=== PATIENT | male | born 1950 | race Caucasian/White ===

== ENCOUNTER 2017-10-07 15:37 | Emergency (ER) | payer BC ==
[~2017-10-07] VITALS: Ht 185.4 cm; Wt 61.1 kg
[~2017-10-07 15:37] MED LIST: ASPEC81 PO; ATOR80TA PO; BNC40 PO; BUPR150T7 PO; CLOP1TAB15 PO; GLCSR750 PO; HYDR25TA4 PO; INSDGI SC
[2017-10-07 15:41] VITALS: TEMP 36.3; Ht 185.4 cm; Wt 61.1 kg
[2017-10-07] MEDS ORDERED: ASPIRIN 81 MG CHEW PO STA (16:06)
[2017-10-07] MEDS ORDERED: NVLG SC (16:10)
[2017-10-07] MEDS ORDERED: GLIM2TAB2 PO (16:10)
[2017-10-07] MEDS ORDERED: DILT-119 PO (16:10)
[2017-10-07] MEDS ORDERED: DOXA8TAB6 PO (16:10)
[2017-10-07] MEDS ORDERED: NITROGLYCERIN 2% OINTMENT 30GM TUBE EXT ONE (16:15)
[2017-10-07 16:19] LABS: HEMATOCRIT 37.7 % (42-52); HEMOGLOBIN 13.5 g/dL (14.0-18.0); MEAN CELL VOLUME 88.7 fL (80-100); MEAN CORPUSCULAR HEMOGLOBIN 31.8 pg (25-34); MEAN CORPUSCULAR HGB CONC 35.8 g/dl (32-36); MEAN PLATELET VOLUME 11.1 fL (7.4-10.4); PLATELET COUNT 198 K/uL (130-400); RED CELL DISTRIBUTION WIDTH CV 13.1 % (11.5-14.5); RED CELL DISTRIBUTION WIDTH SD 42.4 fL (36.4-46.3); WHITE BLOOD COUNT 5.13 K/uL (4.8-10.8)
[2017-10-07] MEDS ORDERED: BNC40 PO (16:19)
[2017-10-07] MEDS ORDERED: ASPI81TA21 PO (16:19)
[2017-10-07] MEDS ORDERED: INSDGI SC ×2 (16:19)
[2017-10-07] MEDS ORDERED: METF750T PO (16:19)
--- NOTE | 2017-10-07 16:22 | EMERGENCY ROOM VISIT NOTE ---
History Report prepared by Gabino: Poonam Maldonado Under the Supervision of: Dr. Wolf Martinez M.D. First contact with patient: 15:54 Chief Complaint: CHEST PAIN Stated Complaint: CHEST PAIN Nursing Triage Summary: pt to the ED with 3 hrs chest pain and feels like previous time he got a stent placed History of Present Illness The patient is a 67 year old male who presents to the Emergency Room with complaints of sudden chest pain beginning 3 hours prior to arrival. The patient rates his pain at a 2/10. The patient states that he usually walks two miles per day, and that his chest pain began 30 minutes after his walk today. The patient reports that he then checked his blood pressure and that it was slightly elevated. He reports that he had the pain for about 3 hours, and that it seems to be gone now that he is here. He states that he took baby aspirin for his pain but that it did not help. He reports that nothing makes his pain better or worse. The patient states that he had similar symptoms 5-10 years ago and that he had a stent placed. He denies a personal history of blood clots and strokes, but states that his father had a DVT. He reports that he is diabetic and that he has hypertension. He also reports that he had a stress test done 3- 4 months ago and that he passed. The patient denies having fevers, chills, headache, nausea, shortness of breath, numbness, and tingling. No radiation of his chest pain. Source of History: patient Onset: 3 hours prior to arrival Position: chest Symptom Intensity: rated at a 2/10 Timing: other (sudden) Associated Symptoms: No fevers, No chills, No headache, No SOB, No nausea, No numbness Review of Systems See HPI for pertinent positives & negatives. A total of 10 systems reviewed and were otherwise negative. Past Medical & Surgical Medical Problems: (1) Diabetes (2) HTN (hypertension) Surgical Problems: (1) Hx of heart artery stent Family History DVT Social History Smoking Status: Former Smoker Alcohol Use: occasionally Drug Use: none Marital Status: Occupation Status: employed Current/Historical Medications Scheduled Aspirin Enteric Coated (Ecotrin Or Generic), 81 MG PO QAM Atorvastatin (Lipitor), 80 MG PO QPM Bupropion Hcl (Wellbutrin Sr), 300 MG PO QAM Clopidogrel (Plavix), 75 MG PO QAM Diltiazem Hcl Ext Rel (Tiazac), 360 MG PO QAM Doxazosin Mesylate (Doxazosin), 8 MG PO QAM Glimepiride (Glimepiride), 2 MG PO QAM Hydrochlorothiazide (Hctz), 25 MG PO QAM Insulin Glargine (Lantus), 22 UNITS SC QAM Insulin Glargine (Lantus), 18 UNITS SC QPM Metformin Hcl (Glucophage Er), 750 MG PO QAM Olmesartan Medoxomil (Benicar), 40 MG PO QAM Scheduled PRN Insulin Aspart (Novolog), Unknown Dose SC DIRECTED PRN for HEAVY MEALS Allergies Coded Allergies: Penicillins (Verified Allergy, Severe, HIVES, 10/07/17) Physical Exam Vital Signs Date Time Temp Pulse Resp B/P (MAP) Pulse Ox O2 Delivery O2 Flow Rate FiO2 10/07/17 18:59 82 20 146/78 98 10/07/17 18:17 68 14 96 Room Air 10/07/17 16:20 83 10/07/17 16:16 80 18 165/94 97 10/07/17 15:41 36.3 86 18 168/83 98 Room Air Physical Exam GENERAL: Patient is in no acute distress. HEENT: No acute trauma, normocephalic atraumatic, mucous membranes moist, no nasal congestion, no scleral icterus. NECK: No stridor, no adenopathy, no meningismus, trachea is midline. LUNGS: Clear to auscultation bilaterally, no wheeze, no rhonchi, breath sounds equal. HEART: Without murmurs gallops or rubs, regular rate and rhythm. ABDOMEN: Soft, nontender, bowel sounds positive, no hernias, no peritonitis. EXTREMITIES: No cyanosis or edema, full range of motion of all the joints without pain or difficulty, no signs for acute trauma. NEUROLOGIC: Oriented x 3, no acute motor or sensory deficits, no focal weakness. SKIN: No rash, no jaundice, no diaphoresis. CHEST: Nontender chest wall. Medical Decision & Procedures ER Provider Diagnostic Interpretation: Radiology results as stated below per my review and radiologist interpretation: CHEST ONE VIEW PORTABLE CLINICAL HISTORY: Atypical chest pain COMPARISON STUDY: September 2015 FINDINGS: The heart is borderline enlarged. There is no failure. There is no focal pulmonary consolidation. There are no pleural effusions.[ IMPRESSION: No active disease in the chest. Electronically signed by: Johnnie Dave M.D. 10/07/2017 4:23 PM Dictated Date/Time: 10/07/2017 4:23 PM Laboratory Results 10/07/17 15:50 10/07/17 15:50 Test 10/07/17 15:50 10/07/17 16:39 10/07/17 18:12 Red Blood Count 4.25 M/uL (4.7-6.1) Mean Corpuscular Volume 88.7 fL (80-100) Mean Corpuscular Hemoglobin 31.8 pg (25-34) Mean Corpuscular Hemoglobin Concent 35.8 g/dl (32-36) RDW Standard Deviation 42.4 fL (36.4-46.3) RDW Coefficient of Variation 13.1 % (11.5-14.5) Mean Platelet Volume 11.1 fL (7.4-10.4) Anion Gap 8.0 mmol/L (3-11) Est Creatinine Clear Calc Drug Dose 46.7 ml/min Estimated GFR () 65.1 Estimated GFR (Non- 56.2 BUN/Creatinine Ratio 13.9 (10-20) Calcium Level 8.6 mg/dl (8.5-10.1) Total Bilirubin 0.3 mg/dl (0.2-1) Aspartate Amino Transf (AST/SGOT) 21 U/L (15-37) Alanine Aminotransferase (ALT/SGPT) 34 U/L (12-78) Alkaline Phosphatase 93 U/L (45-117) Total Protein 6.6 gm/dl (6.4-8.2) Albumin 3.3 gm/dl (3.4-5.0) Globulin 3.3 gm/dl (2.5-4.0) Albumin/Globulin Ratio 1.0 (0.9-2) Lipase 160 U/L (73-393) Prothrombin Time 10.9 SECONDS (9.0-12.0) Prothromb Time International Ratio 1.0 (0.9-1.1) Activated Partial Thromboplast Time 24.1 SECONDS (21.0-31.0) Partial Thromboplastin Ratio 0.9 Troponin I < 0.015 ng/ml (0-0.045) Laboratory results reviewed by me. Medications Administered Medications (Trade) Dose Ordered Sig/Judson Route Start Time Stop Time Status Last Admin Dose Admin Nitroglycerin (Nitroglycerin 2% Oint) 1 inch NOW ONCE EXT 10/07/17 16:15 10/07/17 16:16 DC 10/07/17 16:22 1 INCH Aspirin (Aspirin Chew) 324 mg NOW STAT PO 10/07/17 16:06 10/07/17 16:09 DC 10/07/17 16:16 324 MG ECG Per My Interpretation Indication: chest pain Rate (beats per minute): 86 Rhythm: sinus rhythm Findings: 1st degree AV block, RBBB (incomplete ), no acute ischemic change, no ectopy Change: the incomplete right bundle branch block is new compared to previous ECG ED Course 1606: Ordered Aspirin 324 mg PO. 1609: The patient was evaluated in room B12B. A complete history and physical exam was performed. 1615: Ordered Nitroglycerin 1 inch EXT. 1711: Discussed the patient's case with Dr. Amador. Dr. Amador feels that if the patient's two troponins are negative then he can go home. 1850: The patient's second troponin was negative. 185: Reevaluated the patient. Discussed results and discharge instructions: He verbalized understanding and agreement. The patient is ready for discharge. Medical Decision The patient is a 67 year old male who presents to the ED with complaints of chest pain. Differential diagnoses considered include angina, myocardial infarction, influx, musculoskeletal pain, gastritis, aortic dissection, pulmonary embolism, and pneumonia. There is no leukocytosis or concerning anemia. No significant electrolyte abnormality, kidney failure or hepatitis. There is no coagulopathy. Chest film does not show pneumonia, pneumothorax or mediastinal widening. EKG shows a sinus rhythm with a first-degree AV block and an incomplete right bundle branch block, no acute ischemia. Cardiac enzyme testing 2 is not consistent with acute cardiac injury. The patient presents with chest pressure which was reminiscent of discomfort he had that eventually led to cardiac stenting. He did receive oral aspirin. He was given nitroglycerin paste however, his pain was pretty much gone before the nitroglycerin was applied. I discussed the case with cardiology. The patient was felt stable for discharge with outpatient follow-up. He did have a stress test 3 or 4 months ago did well, this pain was not exertional and actually came on sometime after his 2 mile walk, not during his exercise. Patient was encouraged to return for any exertional or worsening symptoms. He will continue his care as before. Cardiac follow-up this week was suggested. Medication Reconcilliation Current Medication List: was personally reviewed by me Blood Pressure Screening Patient's blood pressure: Elevated blood pressure Blood pressure disposition: Referred to PCP Consults Time Called: 1630 Consulting Physician: Dr. Amador- [facility] Returned Call: [phone] Discussed the patient's case. Dr. Amador feels that if the patient's two troponins are negative then he can go home. Impression Primary Impression: Precordial chest pain Scribe Attestation The scribe's documentation has been prepared under my direction and personally reviewed by me in its entirety. I confirm that the note above accurately reflects all work, treatment, procedures, and medical decision making performed by me. Departure Information Dispostion Home / Self-Care Referrals No Doctor, Assigned (PCP) Leesa Bah D.O. Forms Call Back Authorization, HOME CARE DOCUMENTATION FORM, IMPORTANT VISIT INFORMATION Patient Instructions My [facility] Standard Media Index Additional Instructions return for worsening symptoms return for exertional shortness of breath or exertional chest pain call cardiology for an appt this week--call sunday heart testing today was ok
--- NOTE | 2017-10-07 16:25 | DIAGNOSTIC IMAGING REPORT ---
CHEST ONE VIEW PORTABLE CLINICAL HISTORY: Atypical chest pain COMPARISON STUDY: September 2015 FINDINGS: The heart is borderline enlarged. There is no failure. There is no focal pulmonary consolidation. There are no pleural effusions.[ IMPRESSION: No active disease in the chest. Electronically signed by: Johnnie Dave M.D. 10/07/2017 4:23 PM Dictated Date/Time: 10/07/2017 4:23 PM
[2017-10-07 16:29] LABS: ALBUMIN 3.3 gm/dl (3.4-5.0); CALCIUM 8.6 mg/dl (8.5-10.1); CREATININE 1.29 mg/dl (0.60-1.40); POTASSIUM 4.1 mmol/L (3.5-5.1)
[2017-10-07 16:32] LABS: TOTAL PROTEIN 6.6 gm/dl (6.4-8.2)
[2017-10-07 17:03] LABS: PTT PATIENT 24.1 SECONDS (21.0-31.0)
[2017-10-07 18:59] VITALS: BP 146/78; PULSE 82; O2SAT 98
== END 2017-10-07 19:01 | disposition home or self-care (01) ==
LOC: C.EDB 15:38
DX: R07.2 Precordial pain (principal); I44.0 Atrioventricular block, first degree; I45.19 Other right bundle-branch block; E11.9 Type 2 diabetes mellitus without complications; I10 Essential (primary) hypertension; Z95.5 Presence of coronary angioplasty implant and graft; Z87.891 Personal history of nicotine dependence; Z79.82 Long term (current) use of aspirin; Z79.02 Long term (current) use of antithrombotics/antiplatelets; Z79.4 Long term (current) use of insulin; Z88.0 Allergy status to penicillin; Z82.49 Family history of ischemic heart disease and other diseases of the circulatory system

== ENCOUNTER → 2017-11-29 | Outpatient (CLI) | payer BC ==
[~2017-11-29] MED LIST changes: -ASPEC81 PO; +ASPI-319 PO; +DILT-119 PO; +DOXA8TAB6 PO; -GLCSR750 PO; +GLIM2TAB2 PO; +METF750T PO; +NVLG SC
--- NOTE | 2017-11-29 12:27 | DIAGNOSTIC IMAGING REPORT ---
CHEST 2 VIEWS ROUTINE HISTORY: 67 years-old Male E78.5 [id number] COMPARISON: Chest radiograph 10/07/2017 TECHNIQUE: PA and lateral views of the chest FINDINGS: Cardiomediastinal and hilar silhouettes are within normal limits. Atherosclerosis of the aorta. No pneumothorax, pleural effusion, focal airspace consolidation or overt pulmonary edema. The bones of the chest appear grossly intact. IMPRESSION: No acute process. The above report was generated using voice recognition software. It may contain grammatical, syntax or spelling errors. Electronically signed by: Frankie Hutchison M.D. 11/29/2017 12:25 PM Dictated Date/Time: 11/29/2017 12:24 PM
[2017-11-29 13:23] LABS: BASO % 0.4 %; BASO ABS # 0.02 K/uL (0-0.2); EOS % 1.3 %; EOS ABS # 0.06 K/uL (0-0.5); HEMATOCRIT 39.5 % (42-52); IG# 0.01 K/uL (0.00-0.02); LYMPH % 31.6 %; LYMPH ABS # 1.45 K/uL (1.2-3.4); MEAN CORPUSCULAR HEMOGLOBIN 31.5 pg (25-34); MEAN CORPUSCULAR HGB CONC 35.4 g/dl (32-36); MEAN PLATELET VOLUME 10.9 fL (7.4-10.4); MONO % 9.4 %; MONO ABS # 0.43 K/uL (0.11-0.59); NEUT % 57.1 %; NEUT ABS # 2.62 K/uL (1.4-6.5); PLATELET COUNT 208 K/uL (130-400); RED CELL DISTRIBUTION WIDTH CV 13.1 % (11.5-14.5); RED CELL DISTRIBUTION WIDTH SD 42.5 fL (36.4-46.3); WHITE BLOOD COUNT 4.59 K/uL (4.8-10.8)
[2017-11-29 13:32] LABS: ALBUMIN 3.5 gm/dl (3.4-5.0); ALT/SGPT 27 U/L (12-78); AST/SGOT 15 U/L (15-37); BLOOD UREA NITROGEN 22 mg/dl (7-18); CALCIUM 8.8 mg/dl (8.5-10.1); CARBON DIOXIDE 28 mmol/L (21-32); CREATININE 1.13 mg/dl (0.60-1.40); GLUCOSE 160 mg/dl (70-99); POTASSIUM 3.8 mmol/L (3.5-5.1); SODIUM 139 mmol/L (136-145)
[2017-11-29 13:37] LABS: ALKALINE PHOSPHATASE 68 U/L (45-117); TOTAL PROTEIN 6.6 gm/dl (6.4-8.2)
== END | disposition home or self-care (01) ==
LOC: C.LAB1850 12:04
PROVIDERS: ATTEND Internal Medicine Cardiovascular Disease
DX: E78.5 Hyperlipidemia, unspecified (principal)